=== PATIENT | male | born 1950 | race Two or more races ===

== ENCOUNTER 2022-10-22 12:11 | Inpatient (IN) | payer MEDICARE, OTHER ==
[~2022-10-22] VITALS: Ht 182.9 cm; Wt 86.4 kg
[2022-10-22 12:47] LABS: Basophils # (auto) 0 10 ^3/uL (0-0.2); Eosinophils # (auto) 0.1 10 ^3/uL (0-0.8); Eosinophils % (auto) 0.9 % (0.0-7.0); Lymphocytes # (auto) 1.1 10 ^3/uL (0.4-5.4); Monocytes # (auto) 0.3 10 ^3/uL (0-1.3); Neutrophils # (auto) 4.2 10 ^3/uL (1.6-8.6); Red Blood Cells 5.72 10^6/uL (4.5-5.90); White Blood Cell 5.7 10^3/uL (4.4-10.8)
[2022-10-22 12:49] LABS: Basophils % (auto) 0.6 % (0.0-2.0); Hematocrit 46.2 % (41.0-53.0); Hemoglobin 15.4 g/dL (13.5-17.5); Lymphocytes % (auto) 20.2 % (10.0-50.0); Mean Corpuscular Hgb Conc. 33.4 g/dL (32.0-36.0); Mean Corpuscular Volume 80.8 fL (80.0-100.0); Monocytes % (auto) 4.8 % (0.0-12.0); Neutrophils % (auto) 73.5 % (37.0-80.0); Nucleated Red Blood Cells % 0.1 %; Red Cell Distribution Width 16.8 % (11.8-14.3)
[2022-10-22] MEDS ORDERED: CLOPIDOGREL BISULFATE 75 MG TAB PO ONE (13:15)
[2022-10-22 14:10] LABS: Albumin 4.1 g/dL (3.4-5.0); BUN/Creatinine Ratio 17.6; Calcium 9.7 mg/dL (8.5-10.1); Potassium 3.9 mmol/L (3.5-5.1)
[2022-10-22 14:14] LABS: Total Protein 8.2 g/dL (6.4-8.2)
[2022-10-22] MEDS ORDERED: ENOXAPARIN SOD 100 MG/1 ML SYRINGE SC ONE (15:00)
[2022-10-22] MEDS ORDERED: SODIUM CHLORIDE 0.9% 1,000 ML IV ONE (15:45)
[2022-10-22] MEDS ORDERED: NITROGLYCERIN 0.4 MG SL TAB SL PRN (15:45)
[2022-10-22] MEDS ORDERED: ALBUTEROL SULF 2.5 MG/0.5ML(0.5%) NEB SOLN NEB PRN (15:45)
[2022-10-22] MEDS ORDERED: IPRATROPIUM BROM 0.5 MG/2.5ML INH SOL NEB PRN (15:45)
[2022-10-22] MEDS ORDERED: MORPHINE SULFATE INJ 2 MG/ml SYRG IV PRN (15:45)
[2022-10-22 16:30] LABS: Cholesterol 223 mg/dL (< 200); Triglycerides 517 mg/dL (< 150)
[2022-10-22 16:33] LABS: HDL Cholesterol 35 mg/dL (40-59)
[2022-10-22 20:41] VITALS: BP 149/68
[2022-10-22] MEDS: ONDANSETRON HCL 4 MG/2 ML VIAL IV PRN (21:03)
[2022-10-22] MEDS: MORPHINE SULFATE INJ 2 MG/ml SYRG IV PRN (21:03)
[2022-10-22 22:36] VITALS: BP 132/71
[2022-10-23 05:13] VITALS: BP 132/65
[2022-10-23 06:31] LABS: Basophils # (auto) 0 10 ^3/uL (0-0.2); Basophils % (auto) 0.3 % (0.0-2.0); Eosinophils # (auto) 0 10 ^3/uL (0-0.8); Eosinophils % (auto) 0.7 % (0.0-7.0); Hematocrit 44.3 % (41.0-53.0); Hemoglobin 14.9 g/dL (13.5-17.5); Lymphocytes # (auto) 1.1 10 ^3/uL (0.4-5.4); Mean Corpuscular Hgb Conc. 33.6 g/dL (32.0-36.0); Mean Corpuscular Volume 80.3 fL (80.0-100.0); Monocytes # (auto) 0.4 10 ^3/uL (0-1.3); Monocytes % (auto) 5.4 % (0.0-12.0); Neutrophils % (auto) 79.6 % (37.0-80.0); Nucleated Red Blood Cells % 0.3 %; Red Blood Cells 5.52 10^6/uL (4.5-5.90); Red Cell Distribution Width 16.1 % (11.8-14.3); White Blood Cell 7.5 10^3/uL (4.4-10.8)
[2022-10-23 06:49] LABS: Calcium 8.7 mg/dL (8.5-10.1)
[2022-10-23 09:00] VITALS: BP 130/63
[2022-10-23] MEDS: ASPirin 81 mg TAB PO SCH ×2 (10:00→12:40)
[2022-10-23 13:00] VITALS: BP 140/74
[2022-10-23] MEDS: ENOXAPARIN SOD 40 MG/0.4 ML SYRINGE SC SCH (14:42)
[2022-10-23 17:00] VITALS: BP 130/62
[2022-10-23 21:53] VITALS: BP 141/75
[2022-10-23] MEDS: ATORVASTATIN 20 MG TAB PO SCH (22:01)
[2022-10-24 05:00] VITALS: BP 139/73
[2022-10-24 09:00] VITALS: BP 139/67
[2022-10-24] MEDS: ENOXAPARIN SOD 40 MG/0.4 ML SYRINGE SC SCH (09:40)
[2022-10-24] MEDS: MORPHINE SULFATE INJ 2 MG/ml SYRG IV PRN ×2 (09:40→17:15)
[2022-10-24 13:00] VITALS: BP 127/66
[2022-10-24 17:00] VITALS: BP 132/62
[2022-10-24] MEDS: ATORVASTATIN 20 MG TAB PO SCH (20:39)
[2022-10-24 22:00] VITALS: BP 121/70
[2022-10-25 05:00] VITALS: BP 139/72
[2022-10-25 08:34] VITALS: BP 137/71
[2022-10-25] MEDS: ASPirin 81 mg TAB PO SCH (08:42)
[2022-10-25] MEDS: ENOXAPARIN SOD 40 MG/0.4 ML SYRINGE SC SCH (08:43)
[2022-10-25] MEDS: ONDANSETRON HCL 4 MG/2 ML VIAL IV PRN (08:52)
[2022-10-25] MEDS: MORPHINE SULFATE INJ 2 MG/ml SYRG IV PRN ×2 (08:52→19:08)
[2022-10-25] MEDS ORDERED: ONDANSETRON HCL 4 MG/2 ML VIAL IV ONE (11:00)
[2022-10-25 12:50] VITALS: BP 121/62
[2022-10-25] MEDS ORDERED: LIDOCAINE VISCOUS 2% 15ML UD ONE (13:23)
[2022-10-25] MEDS ORDERED: MIDAZOLAM HCL 2MG/2ML 2ml VIAL (1mg/ml) ONE (13:24)
[2022-10-25] MEDS ORDERED: fentaNYL CITRATE 100 MCG/2 ML VL ONE (13:24)
[2022-10-25] MEDS ORDERED: LIDOCAINE VISCOUS 2% 15ML UD MT ONE (13:30)
[2022-10-25] MEDS ORDERED: MIDAZOLAM HCL 2MG/2ML 2ml VIAL (1mg/ml) IV ONE (13:30)
[2022-10-25] MEDS ORDERED: fentaNYL CITRATE 100 MCG/2 ML VL IV ONE (13:30)
[2022-10-25 17:37] VITALS: BP 140/60
[2022-10-25 22:00] VITALS: BP 148/73
[2022-10-25] MEDS: ATORVASTATIN 20 MG TAB PO SCH (22:10)
[2022-10-25] MEDS: CARVEDILOL 3.125 MG TAB PO SCH (22:10)
[2022-10-26 05:00] VITALS: BP 128/62
[2022-10-26] MEDS: EMPAGLIFLOZIN 10 MG TAB PO SCH (07:07)
[2022-10-26 09:26] VITALS: BP 99/63
[2022-10-26] MEDS ORDERED: CYANOCOBALAMIN (B-12) 1000 MCG/1 ML VIAL IM ONE (10:30)
[2022-10-26] MEDS: ASPirin 81 mg TAB PO SCH (10:37)
[2022-10-26] MEDS: ENOXAPARIN SOD 40 MG/0.4 ML SYRINGE SC SCH (10:38)
[2022-10-26] MEDS: CARVEDILOL 3.125 MG TAB PO SCH ×2 (10:38→22:24)
[2022-10-26] MEDS: ONDANSETRON HCL 4 MG/2 ML VIAL IV PRN (10:40)
[2022-10-26] MEDS: MORPHINE SULFATE INJ 2 MG/ml SYRG IV PRN (10:40)
[2022-10-26 17:14] VITALS: BP 149/75
[2022-10-26 22:00] VITALS: BP 143/65
[2022-10-26] MEDS: ATORVASTATIN 20 MG TAB PO SCH (22:24)
[2022-10-27] MEDS: ONDANSETRON HCL 4 MG/2 ML VIAL IV PRN (03:03)
[2022-10-27] MEDS: MORPHINE SULFATE INJ 2 MG/ml SYRG IV PRN ×2 (03:20→11:56)
[2022-10-27 05:00] VITALS: BP 139/72
[2022-10-27] MEDS: EMPAGLIFLOZIN 10 MG TAB PO SCH (06:30)
[2022-10-27 08:00] VITALS: BP 125/64
[2022-10-27] MEDS ORDERED: CYANOCOBALAMIN 500 MCG TAB PO SCH (10:00)
[2022-10-27] MEDS: ASPirin 81 mg TAB PO SCH (11:40)
[2022-10-27] MEDS: CARVEDILOL 3.125 MG TAB PO SCH (11:41)
[2022-10-27] MEDS: ENOXAPARIN SOD 40 MG/0.4 ML SYRINGE SC SCH (11:42)
[2022-10-27 12:00] VITALS: BP 122/68
[2022-10-27 16:00] VITALS: BP 128/64
[2022-10-28] MEDS ORDERED: FOLIC ACID 1 MG TAB PO SCH (10:00)
== END 2022-10-27 18:30 | DRG 65 ==
LOC: ER 12:11 → TELE 15:43 → TELE-EAST 22:00
PROVIDERS: ADMIT Nurse Practitioner Acute Care; ATTEND Nurse Practitioner Acute Care
DX: I63.9 Cerebral infarction, unspecified (principal); G81.94 Hemiplegia, unspecified affecting left nondominant side; I50.22 Chronic systolic (congestive) heart failure; I13.0 Hypertensive heart and chronic kidney disease with heart failure and stage 1 through stage 4 chronic kidney disease, or unspecified chronic kidney disease; E11.22 Type 2 diabetes mellitus with diabetic chronic kidney disease; I25.10 Atherosclerotic heart disease of native coronary artery without angina pectoris; N18.31 Chronic kidney disease, stage 3a; R29.810 Facial weakness; E78.5 Hyperlipidemia, unspecified; N40.0 Benign prostatic hyperplasia without lower urinary tract symptoms; Z79.82 Long term (current) use of aspirin; Z79.899 Other long term (current) drug therapy; Z80.1 Family history of malignant neoplasm of trachea, bronchus and lung; Z82.49 Family history of ischemic heart disease and other diseases of the circulatory system; Z83.3 Family history of diabetes mellitus; Z86.73 Personal history of transient ischemic attack (TIA), and cerebral infarction without residual deficits; Z95.1 Presence of aortocoronary bypass graft; Z95.810 Presence of automatic (implantable) cardiac defibrillator
CPT/HCPCS: 36415; 70450; 70551; 71045; 80048; 80053; 80061; 82607; 82962; 83090; 84484; 85025; 87426; 93306; 93312; 93886; 96361; 96372; 96374; 96375; 97110; 97116; 97163; 99152; 99291; G0378; J2250; J2405

== ENCOUNTER 2024-10-12 18:40 | Emergency (ER) | payer OTHER ==
[~2024-10-12] VITALS: Ht 182.9 cm; Wt 82.8 kg
--- NOTE | 2024-10-12 19:32 | DVH ---
CT HEAD WITHOUT CONTRAST INDICATION: fall COMPARISON: CT HEAD WITHOUT CONTRAST on DOS: 10/24/22, CT HEAD WITHOUT CONTRAST on DOS: 10/22/22 TECHNIQUE: CT of the head without intravenous contrast. RADIATION DOSE: CTDIvol: 64.48 mGy, DLP: 1270.55 mGy*cm FINDINGS: There is no evidence of intracranial hemorrhage, acute infarct, extra-axial collection, mass effect, midline shift, herniation or hydrocephalus. 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 Minimal chronic white matter microvascular ischemic ch link. Mild ventricular and sulcal enlargement related to cerebral volume loss. Visualized paranasal s inuses and mastoid air cells are clear. Soft tissues and osseous structures are unremarkable. IMPRESSION: No hemorrhage or other acute intracranial abnormality.
--- NOTE | 2024-10-12 20:32 | ED.PDOC ---
HPI (NEURO) HPI Comments Pt presents to ED with c/c of head pain s/p falling off bed this morning d/t a nightmare. States he rolled out of bed, was able to put his hands out, but managed to hit head. Admit to use of blood thinner(plavix) to "help his blood not clot." Denies weakness, numbness, slurred speech, LOC, neck pain, back pain, chest pain, or shortness of breath. Chief Complaint: Fall Injury Time Seen by MD: 19:04 Primary Care Provider: SHAVON Reviewed Notes: Nurses Notes, Medications, Allergies Information Source: Patient Mode of Arrival: Ambulatory Past Medical History PAST MEDICAL HISTORY: DM, HTN Surgical History: Denies all surgeries Family History Family History: Unknown Social History Smoker: Non-Smoker Alcohol: Denies ETOH Use Drugs: Denies Drug Use Lives In: Home Constitutional: denies: chills, diaphoresis, fatigue, fever, malaise, sweats, weakness, others EENTM: denies: blurred vision, double vision, ear bleeding, ear discharge, ear drainage, ear pain, ear ringing, eye pain, eye redness, hearing loss, mouth pain, mouth swelling, nasal discharge, nose bleeding, nose congestion, nose pain, photophobia, tearing, throat pain, throat swelling, voice changes, others Cardiovascular: denies: chest pain, dizzy spells, diaphoresis, Dyspnea on exertion, edema, irregular heart beat, left arm pain, lightheadedness, palpitations, PND, syncope, others Gastrointestinal: denies: abdomen distended, abdominal pain, blood streaked bowels, constipated, diarrhea, dysphagia, difficulty swallowing, hematemesis, melena, nausea, poor appetite, poor fluid intake, rectal bleeding, rectal pain, vomiting, others Genitourinary: denies: burning, dysuria, flank pain, frequency, hematuria, incontinence, penile discharge, penile sore, pain, testicle pain, testicle swelling, urgency, others Neurological: reports: headache; denies: dizziness, fainting, left sided numbness, left sided weakness, numbness, paresthesia, pre-existing deficit, right sided numbness, right sided weakness, seizure, speech problems, tingling, tremors, weakness, others Musculoskeletal: denies: back pain, gout, joint pain, joint swelling, muscle pain, muscle stiffness, neck pain, others Integumetry: reports: wounds (Abrasion forehead); denies: bruises, change in color, change in hair/nails, dryness, laceration, lesions, lumps, rash, others Allergic/Immunocompromised: denies: Difficulty Healing, Frequent Infections, Hives, Itching, others Hematologic/Lymphatic: denies: anemia, blood clots, easy bleeding, easy bruising, swollen glands, others Endocrine: denies: excessive hunger, excessive sweating, excessive thirst, excessive urination, flushing, intolerance to cold, intolerance to heat, unexp lained weight gain, unexplained weight loss, others Psychiatric: denies: anxiety, bipolar disorder, depression, hopeless, panic disorder, schizophrenia, sleepless, suicidal, others Physical Exam General Appearance: No Apparent Distress, Normal HEENT: Normal ENT Inspection, Pharynx Normal, TMs Normal Neck: Full Range of Motion, Non-Tender Respiratory: Lungs Clear, No Respiratory Distress, Normal Breath Sounds Cardiovascular: No Edema, No JVD, No Murmur, No Gallop, Normal Peripheral Pulses, Regular Rate/Rhythm Breast Exam: Deferred Gastrointestinal: No Organomegaly, Non Tender, No Pulsatile Mass, Normal Bowel Sounds, Soft Genitalia: Deferred Pelvic: Deferred Rectal: Deferred Extremities: Normal capillary refill, Normal inspection, Normal range of motion, Non-tender, No pedal edema Musculoskeletal : Apperance: Normal Neurologic: Alert, ux ui designer II-XII nml as Tested, No Motor Deficits, Normal Affect, Normal Mood, No Sensory Deficits Cerebellar Function: Normal Reflexes: Normal Skin: Dry, Normal Color, Warm, Wounds (Superficial abrasion middle of forehead no noted bleeding trace edema) Lymphatic: No Adenopathy Was a procedure done? Was a procedure done?: No Differential Diagnosis (SZ) Headache: Closed Head Injury, Intracerebral Hemorrhage, Subarachnoid Hemorrhage, Subdural Hemorrhage, Post-Traumatic X-Ray, Labs, Meds, VS Vital Signs Date Time Temp Pulse Resp B/P (MAP) Pulse Ox O2 Delivery O2 Flow Rate FiO2 10/12/24 18:51 97.5 73 16 150/71 (97) 95 X-Ray, Labs, Meds, VS Comment CT head brain shows no acute bleed or any concerning findings. Patient requesting discharge at this time. Advised to rest increase p.o. fluids with electrolytes, light diet. [id number] Tylenol as needed for pain per labeled dosing instructions. Advised to monitor for the next 24-48 hours return for the ER for increasing pain, numbness, weakness, slurred speech, lethargy, or any concerning symptoms. Patient follow up with his PCP in 1-2 days. Patient indicates understanding agrees with discharge plan of care. Time of 1ST Reevaluation: 20:31 Reevaluation 1ST: Improved Patient Education/Counseling: Diagnosis, Treatment, Prognosis, Need For Follow Up Family Education/Counseling: No Family Present Departure 1 Departure Time of Disposition: 20:31 Impression: Primary Impression: Head trauma Qualified Codes: S09.90XA - Unspecified injury of head, initial encounter Disposition: HOME / SELF CARE / HOMELESS Condition: Stable e-Prescriptions Unable to Obtain Active Prescriptions or Reported Meds Discharged With: Significant Other Critical Care Note Critical Care Time?: No Stability Stability form required: NANY Darnell Oct 12, 2024 20:32
[2024-10-12 20:44] VITALS: BP 148/74; PULSE 77; RESP 18; TEMP 98.3; O2SAT 95
== END 2024-10-12 20:57 | disposition home or self-care (01) ==
LOC: ER 18:43
DX: S00.81XA Abrasion of other part of head, initial encounter (principal); I10 Essential (primary) hypertension; E11.9 Type 2 diabetes mellitus without complications; W06.XXXA Fall from bed, initial encounter; Y93.89 Activity, other specified; Y92.89 Other specified places as the place of occurrence of the external cause; Y99.8 Other external cause status
CPT/HCPCS: 70450